=== PATIENT | female | born 1960 | race Two or more races ===

== ENCOUNTER 2017-12-12 14:14 | Outpatient (CLI) | payer OTHER ==
[~2017-12-12 14:14] MED LIST: AMOX1TAB12 PO; DICLOFENAC SODI50 MG PO; INSULIN GLARGINE; METFORMIN HCL1000 MG; ONGLYZA2.5 MG; SYNTHROID50 MCG; TUSSI PRES-B L120 M1 PO
== END 2017-12-12 14:23 | disposition home or self-care (01) ==
LOC: MAMO-SONO 14:14
DX: Z12.31 Encounter for screening mammogram for malignant neoplasm of breast (principal); Z12.39 Encounter for other screening for malignant neoplasm of breast